=== PATIENT | male | born 1950 | race Asian ===

== ENCOUNTER 2023-04-13 16:23 | Emergency (ER) | payer OTHER ==
[2023-04-13 16:37] VITALS: BP 170/94; PULSE 89; RESP 16; TEMP 97.8; BMI 22.6
== END 2023-04-13 16:46 | disposition home or self-care (01) ==
LOC: FER 16:23
DX: Z48.01 Encounter for change or removal of surgical wound dressing (principal); S61.012D Laceration without foreign body of left thumb without damage to nail, subsequent encounter; X58.XXXD Exposure to other specified factors, subsequent encounter
CPT/HCPCS: 99282-25